=== PATIENT | female | born 1990 | race Caucasian/White ===

== ENCOUNTER → 2016-06-13 | Outpatient (CLI) | payer BC ==
--- NOTE | 2016-06-13 16:22 | CT ---
EXAMINATION TYPE: CT mastoid wo con DATE OF EXAM: 06/13/2016 4:16 PM COMPARISON: NONE HISTORY: Bilateral ear and neck pain for [address] DLP: 150 mGycm Automated exposure control for dose reduction was used. FINDINGS: Small amount of fluid is within the inferior posterior right mastoid air cells. Mastoid air cells oth erwise appear clear. Internal auditory canals appear normal. Semicircular canals appear normal. Cerebellar pontine angles are unremarkable. Middle ears appear clear. Paranasal sinuses are unremarkable note is made of right septal deviation. The sella is normal. Cochlea are normal IMPRESSION: SMALL AMOUNT OF FLUID WITHIN THE INFERIOR POSTERIOR RIGHT MASTOID AIR CELLS WITHOUT SEPTAL DESTRUCTIO N. MILD RIGHT MASTOIDITIS MAY BE PRESENT.
== END | disposition home or self-care (01) ==
LOC: RADCTMAIN 15:57
PROVIDERS: ATTEND Nurse Practitioner Family
DX: H70.003 Acute mastoiditis without complications, bilateral (principal)
CPT/HCPCS: 70486

== ENCOUNTER → 2017-02-12 | Outpatient (CLI) | payer BC, OTHER ==
--- NOTE | 2017-02-12 15:02 | US ---
EXAMINATION TYPE: US transvaginal DATE OF EXAM: 02/12/2017 COMPARISON: NONE CLINICAL HISTORY: 26-year-old female left lower quadrant pain R10.32, Low grade fever. Left pelvic pa in x 5 weeks, 1, para 1 TECHNIQUE: Transvaginal (TV) only per ordering physician FINDINGS: Date of LMP: 02/09/17 Uterus: Anteverted measuring 6.8 x 3.6 x 3.8 cm Endometrial Stripe: 0.4 cm, within normal limits. Right Ovary: 2.7 x 1.8 x 1.8 cm Left Ovary: 1.8 x 1.2 x 1.6 cm Small follicles on both sides. No evident adnexal abnormality or cul-de-sac free fluid. IMPRESSION: Unremarkable transvaginal sonographic examination of the pelvis.
== END | disposition home or self-care (01) ==
LOC: RADUSWWP 13:59
PROVIDERS: ATTEND Family Medicine
DX: R10.32 Left lower quadrant pain (principal); N92.6 Irregular menstruation, unspecified; R50.9 Fever, unspecified
CPT/HCPCS: 76830

== ENCOUNTER 2017-10-26 13:44 | Outpatient (CLI) | payer OTHER ==
[2017-10-26] MEDS ORDERED: LACTATED RINGERS 1,000 ML IV SCH (14:15)
[2017-10-26 14:37] LABS: Amorphous Sediment,Urine Few /hpf; Appearance,Urine Turbid (Clear); Bilirubin,Urine Negative (Negative); Blood,Urine Negative (Negative); Color,Urine Yellow; Glucose,Urine (UA) Negative (Negative); Ketones,Urine Negative (Negative); Leukocyte Esterase,Urine Large (Negative); Mucus,Urine Rare /hpf; Nitrite,Urine Negative (Negative); Protein,Urine Trace (Negative); Specific Gravity,Urine 1.014 (1.001-1.035); Squamous Epithelial Cell,Urine 32 /hpf (0-4); Urobilinogen,Urine <2.0 mg/dL (<2.0); WBC,Urine 38 /hpf (0-5)
[2017-10-26 17:41] VITALS: BP 120/71; PULSE 98; RESP 16; TEMP 98.2
--- NOTE | 2017-10-31 19:39 | P.MSEPDOC ---
Presenting Problems - Arrival Data Date of Arrival on Unit: 10/26/17 Time of Arrival on Unit: 13:44 Mode of Transport: Ambulatory - Complaint OB-Reason for Admission/Chief Complaint: Possible Onset of Labor Medical History - Information : 3 Para: 0 Term: 0 : 0 Abortions: Spontaneous or Elective: 3 Number of Living Children: 0 - Gestational Age Gestational Age by RAQUEL (wks/days): 37 Weeks and 5 Days Review of Systems - Review of Systems Constitutional: No problems Breast: No problems ENT: No problems Cardiovascular: No problems Respiratory: No problems Gastrointestinal: No problems Genitourinary: No problems Musculoskeletal: No problems Neurological: No problems Skin: No problems Vital Signs - Temperature Temperature: 98.2 F Temperature Source: Oral - Pulse Right Pulse Rate: 98 Pulse Assessment Method: Automatic Cuff - Respirations Respiratory Rate: 16 Oxygen Delivery Method: Room Air - Blood Pressure Right Arm Blood Pressure: 120/71 Blood Pressure Mean: 87 Blood Pressure Source: Automatic Cuff Medical Screen Scoring (Pre) - Cervical Exam Dilation: 0 cm = 0 Membranes: Intact - Uterine Contractions Frequency: N/A - Maternal Vital Signs Maternal Temperature: N/A Signs of Preeclampsia: N/A Maternal Respirations: N/A - Pain Assessment Pain Location and Character: Left, Anterior, Abdomen Pain Scale Used: Numeric (1 - 10) Pain Intensity: 5 Pain Management Goal: 5 Pain Description: Cramping Pain Radiation Location: up back - Maternal Trauma Maternal Trauma: N/A - Assessment Baseline FHR: 150 Heart Rate - NICHD Category: Category I (Normal) = 0 - Total Score Total Score (Pre): 0 - Level of Risk Level of Risk: N/A Physician Notification (Pre) - Physician Notified Physician Notified Date: 10/26/17 Physician Notified Time: 14:00 Physician/Practitioner Notifed:: Dr Cross New Order Received: Yes - Notification Comment Comment: U/A, Iv 1000 cc LR. ffn, vag exam Disposition - Disposition OB Disposition: Discharge to home Discharge Date: 10/26/17 Discharge Time: 16:10 I agree with the RN Medical Screening Exam: Yes Risk & Benefit of care provided described in d/c instruction: Yes Diagnosis: FALSE LABOR AT OR AFTER 37 COMPLETED WEEKS OF GESTATION
== END 2017-10-26 16:10 | disposition home or self-care (01) ==
LOC: FBPOP 13:44
PROVIDERS: ATTEND Obstetrics & Gynecology Obstetrics
DX: O47.1 False labor at or after 37 completed weeks of gestation (principal); Z3A.37 37 weeks gestation of pregnancy
CPT/HCPCS: 81001; 82731; 96360; 99213

== ENCOUNTER 2018-01-05 12:19 | Outpatient (CLI) | payer OTHER ==
[2018-01-05 14:08] VITALS: BP 139/79; PULSE 111; RESP 18; TEMP 97.3
--- NOTE | 2018-02-01 01:48 | P.MSEPDOC ---
Presenting Problems - Arrival Data Date of Arrival on Unit: 01/05/18 Time of Arrival on Unit: 12:19 Mode of Transport: Ambulatory - Complaint Comment: decreased movement and pain and elevated blood sugars Medical History - Information : 2 Para: 1 Term: 0 : 1 Abortions: Spontaneous or Elective: 0 Number of Living Children: 1 - Gestational Age Gestational Age by RAQUEL (wks/days): 37 Weeks and 1 Days - History Complications: GDM Review of Systems - Review of Systems Constitutional: No problems Breast: No problems ENT: No problems Cardiovascular: No problems Respiratory: No problems Gastrointestinal: No problems Genitourinary: No problems Musculoskeletal: No problems Neurological: No problems Skin: No problems Vital Signs - Temperature Temperature: 97.3 F Temperature Source: Oral - Pulse Right Brachial Pulse Rate: 111 Pulse Assessment Method: Automatic Cuff - Respirations Respiratory Rate: 18 Oxygen Delivery Method: Room Air O2 Sat by Pulse Oximetry: 98 - Blood Pressure Right Arm Blood Pressure: 139/79 Blood Pressure Mean: 99 Blood Pressure Source: Automatic Cuff Medical Screen Scoring (Pre) - Cervical Exam Dilation: 1-3 cm = 1 Membranes: Intact - Uterine Contractions Frequency: > 5 minutes apart = 1 Duration: > 40 seconds = 2 Intensity: N/A - Maternal Vital Signs Maternal Temperature: N/A Signs of Preeclampsia: N/A Maternal Respirations: N/A - Pain Assessment Pain Location and Character: Right, Abdomen Pain Scale Used: Numeric (1 - 10) Pain Intensity: 5 Pain Description: *Acute Pain Frequency: Intermittent Pain Behavior: Vocalization - Maternal Trauma Maternal Trauma: N/A - Assessment Baseline FHR: 160 Heart Rate - NICHD Category: Category I (Normal) = 0 NST: Reactive Position: N/A Station: N/A - Total Score Total Score (Pre): 4 - Level of Risk Level of Risk: Low (0-5) Physician Notification (Pre) - Physician Notified Physician Notified Date: 01/05/18 Physician Notified Time: 12:55 Physician/Practitioner Notifed:: Dr. Godwin Spoke With: Dr. Godwin New Order Received: Yes - Notification Comment Comment: recheck cervix in one hour, if no change, discharge pt home Disposition - Disposition OB Disposition: Triage, Discharge to home, Written follow up instructions reviewed Discharge Date: 01/05/18 Discharge Time: 13:55 I agree with the RN Medical Screening Exam: Yes Risk & Benefit of care provided described in d/c instruction: Yes Diagnosis: DECREASED MOVEMENTS, UNSP TRIMESTER, UNSP
== END 2018-01-05 13:55 | disposition home or self-care (01) ==
LOC: FBPOP 12:19
PROVIDERS: ATTEND Obstetrics & Gynecology
DX: O36.8190 Decreased fetal movements, unspecified trimester, not applicable or unspecified (principal); Z3A.37 37 weeks gestation of pregnancy
CPT/HCPCS: 59025; 99213

== ENCOUNTER 2018-01-10 05:57 | Inpatient (IN) | payer OTHER ==
[2018-01-10] MEDS ORDERED: LIDOCAINE 0.5% (PF) 5 MG/ML (50 ML SDV) SQ PRN (06:11)
[2018-01-10] MEDS ORDERED: CARBOPROST TROMETHAMINE 250 MCG/ML 1 ML AMP IM PRN (06:11)
[2018-01-10] MEDS ORDERED: TERBUTALINE 1 MG/ML VIAL SQ PRN (06:11)
[2018-01-10] MEDS ORDERED: OXYTOCIN 10 UNIT/ML 1 ML VIAL IM PRN (06:11)
[2018-01-10] MEDS ORDERED: METHYLERGONOVINE 0.2 MG/ML 1 ML AMP IM PRN (06:11)
[2018-01-10] MEDS ORDERED: LACTATED RINGERS 1,000 ML IV SCH (06:15)
[2018-01-10] MEDS ORDERED: OXYTOCIN 20 UNITS/1000 ML NS 1,000 ML IV SCH ×2 (06:15→12:30)
[2018-01-10 06:28] LABS: Anisocytosis Slight; Basophils % (A) 0 %; Eosinophils # (A) 0.1 k/uL (0-0.7); Eosinophils % (A) 1 %; HCT 29.9 % (34.0-46.0); HGB 10.3 gm/dL (11.4-16.0); Lymphocytes # (A) 2.1 k/uL (1.0-4.8); Lymphocytes % (A) 24 %; MCH 26.8 pg (25.0-35.0); MCHC 34.4 g/dL (31.0-37.0); MCV 77.9 fL (80.0-100.0); Mean Platelet Volume 8.2; Microcytosis Slight; Monocytes # (A) 0.5 k/uL (0-1.0); Monocytes % (A) 6 %; Neutrophils # (A) 5.7 k/uL (1.3-7.7); Neutrophils % (A) 67 %; Platelet Count 219 k/uL (150-450); Poikilocytosis Moderate; RBC 3.84 m/uL (3.80-5.40); RDW 17.3 % (11.5-15.5); WBC 8.5 k/uL (3.8-10.6)
[2018-01-10 06:40] VITALS: BMI 35.1
[2018-01-10 07:49] LABS: Glucose,Whole Blood 89 mg/dL (75-99)
--- NOTE | 2018-01-10 08:33 | P.HPOB ---
History of Present Illness H&P Date: 01/10/18 Chief Complaint: IUP at 37-6/7 weeks, poorly controlled gestational diabetes, advanced cervi This is a 27-year-old 2 para 0101 at 37-6/7 weeks. Patient is known gestational diabetic. She is progressed through over the last few weeks she has had poorly controlled sugars. Patient states most of her fastings have been greater than 100 and her postprandials have been in the 180s. Patient isn't feeling well and when she takes her blood sugars she notes that they are significantly elevated. She notes good movement at this time. She denies vaginal bleeding and she is noting consistent painful contractions. Patient was seen in the office yesterday on 01/09 with noted advanced dilation of 4-5 cm. On bloodwork patient has a blood type of A+, rubella immune, hepatitis B surface antigen negative, HIV negative, RPR nonreactive, GBS negative. She is gestational diabetic as stated above and has been poorly controlled and noncompliant throughout the patient has been unable to check her blood sugars had a routine basis, due to insurance issues and getting test strips. Patient has been receiving routine care since 9 weeks of gestation with myself. Patient has her due date based on a first trimester ultrasound in addition. Review of Systems Constitutional: Reports fatigue, Denies chills, Denies fever Ears, nose, mouth and throat: Denies headache Cardiovascular: Reports edema Respiratory: Denies cough, Denies dyspnea Gastrointestinal: Reports nausea, Denies constipation, Denies diarrhea, Denies vomiting Genitourinary: Reports Past Medical History Past Medical History: No Reported History Additional Past Medical History / Comment(s): gestational diabetes History of Any Multi-Drug Resistant Organisms: None Reported Additional Past Surgical History / Comment(s): left eye, cyst removed from wrist. Her tubes as a child Additional Past Anesthesia/Blood Transfusion Reaction / Comment(s): NEVER HAD BLOOD TRANSFUSION Past Psychological History: No Psychological Hx Reported Smoking Status: Never smoker Past Alcohol Use History: None Reported Past Drug Use History: None Reported - Past Family History Mother Family Medical History: No Reported History Medications and Allergies Home Medications Medication Instructions Recorded Confirmed Type Ondansetron HCl [Zofran] 4 mg PO ONCE PRN 01/05/18 01/10/18 History Pedi Multivit No.25/Folic Acid 2 tab PO DAILY 01/05/18 01/10/18 History [Flintstones Multivit Chew Tab] Allergies Allergy/AdvReac Type Severity Reaction Status Date / Time No Known Allergies Allergy Verified 01/10/18 06:10 Exam Osteopathic Statement: *. No significant issues noted on an osteopathic structural exam other than those noted in the History and Physical/Consult. Vital Signs Temp Pulse Resp BP Pulse Ox 01/10/18 06:09 97.4 F L 97 16 126/79 98 Intake and Output 01/09/18 01/10/18 01/10/18 22:59 06:59 14:59 Other: Weight 78.925 kg - OBG Physical Exam Abdomen: Gravid and measuring large for gestational age ultrasound done yesterday with fetus measuring 7 lbs. 15 oz. or 83rd percentile, MARLA was slightly elevated at 22 Cervix: 4-5/60/-2 bulging bag of water is noted amniotomy is performed and clear fluid is obtained large amount Uterus: enlarged Results Result Diagrams: 01/10/18 06:15 Abnormal Lab Results - Last 24 Hours (Table) 01/10/18 Range/Units 06:15 Hgb 10.3 L (11.4-16.0) gm/dL Hct 29.9 L (34.0-46.0) % MCV 77.9 L (80.0-100.0) fL RDW 17.3 H (11.5-15.5) % Assessment and Plan (1) Term Current Visit: Yes Status: Acute Code(s): Z34.80 - ENCOUNTER FOR SUPRVSN OF NORMAL , UNSP TRIMESTER SNOMED Code(s): 11119157 (2) GDM (gestational diabetes mellitus), class A1 Current Visit: Yes Status: Acute Code(s): O24.410 - GESTATIONAL DIABETES MELLITUS IN , DIET CONTROLLED SNOMED Code(s): 16491407 (3) Prolonged latent phase of labor Current Visit: Yes Status: Acute Code(s): O62.0 - PRIMARY INADEQUATE CONTRACTIONS SNOMED Code(s): 921994559 (4) Noncompliance with diabetes treatment Current Visit: Yes Status: Acute Code(s): Z91.19 - PATIENT'S NONCOMPLIANCE W OTH MEDICAL TREATMENT AND REGIMEN SNOMED Code(s): 8852254 Plan: After long discussion with the patient in the office regarding gestational age noncompliance with gestational diabetes testing, diet the decision was made for induction of labor. The possibility of the infant going to special care nursery is discussed with the patient she states understanding all questions are answered and she agrees with the plan. Patient was also noted to be significantly diet dilated at 4-5 cm with a bulging bag of water. With the contractions patient was noting induction was necessary in addition. Pitocin induction is begun. Amniotomy was performed with copious amount of clear fluid being noted.
[2018-01-10] MEDS ORDERED: BUTORPHANOL 1 MG/ML 1 ML VIAL IV PRN (10:13)
[2018-01-10] MEDS ORDERED: diphenhydrAMINE 50 MG/ML 1 ML VIAL IVP PRN ×2 (12:26)
[2018-01-10] MEDS ORDERED: WITCH HAZEL 1 EACH MED..PAD TOPICAL PRN (12:26)
[2018-01-10] MEDS ORDERED: BENZOCAINE/MENTHOL SPRAY 1 GM/SPRAY AEROSOL TOPICAL PRN (12:26)
[2018-01-10] MEDS ORDERED: diphenhydrAMINE 50 MG CAP PO PRN (12:26)
[2018-01-10] MEDS ORDERED: SIMETHICONE 80 MG CHEWABLE PO PRN (12:26)
[2018-01-10] MEDS ORDERED: HYDROCORTISONE 2.5% RECTAL CREAM 30 GM TUBE RECTAL PRN (12:26)
[2018-01-10] MEDS ORDERED: diphenhydrAMINE 25 MG CAP PO PRN (12:26)
[2018-01-10] MEDS ORDERED: ZOLPIDEM 5 MG TAB PO PRN (12:26)
[2018-01-10] MEDS ORDERED: LANOLIN CREAM 5 GM TUBE TOPICAL PRN (12:26)
--- NOTE | 2018-01-10 13:43 | P.PROBDLV ---
Vaginal Delivery Note - . Vaginal Delivery Note: This is a 27-year-old 2 para 0101 at 37-6/7 weeks that presents for induction of labor secondary to noncompliance with gestational diabetes, advanced cervical dilation. Patient presented to labor and delivery for to 5 cm Pitocin induction of labor was begun. Eventually amniotomy was performed and clear fluid was obtained, a copious amount. Patient declined epidural, but did receive 1 dose of Stadol throughout labor. Patient progressed to complete. She began pushing and had a normal spontaneous vaginal delivery with a viable female infant born at 1822, 8 lbs. 0 oz. with Apgars of 9 and 9 at one and 5 minutes respectively. After a two-minute delay the cord was doubly clamped and cut. The placenta was then delivered spontaneously intact with a three-vessel cord being noted. On inspection the patient's vaginal vault a first-degree vaginal laceration was noted this was repaired in the usual fashion after 1% lidocaine was injected. The uterus was noted to be firm and below the umbilicus and bleeding was moderate at this time. Estimated blood loss was approximately 200 mL. Patient and infant tolerated delivery well and are resting comfortably.
[2018-01-10] MEDS ORDERED: IBUPROFEN IV 800 MG in SODIUM CHLORIDE 0.9% 250 ML IV ONE (14:15)
[2018-01-10] MEDS: ACETAMINOPHEN TAB 325 MG TAB PO PRN ×2 (17:48→23:17)
[2018-01-10] MEDS: IBUPROFEN 600 MG TAB PO PRN (19:40)
[2018-01-10] MEDS: SENNOSIDES-DOCUSATE SODIUM 1 EACH TAB PO SCH (20:41)
[2018-01-11] MEDS: IBUPROFEN 600 MG TAB PO PRN ×3 (01:39→13:40)
[2018-01-11 05:48] LABS: Glucose,Whole Blood 64 mg/dL (75-99)
[2018-01-11] MEDS: SENNOSIDES-DOCUSATE SODIUM 1 EACH TAB PO SCH (07:28)
--- NOTE | 2018-01-11 08:20 | P.DS ---
Providers Date of admission: 01/10/18 05:57 Expected date of discharge: 01/11/18 Attending physician: Nilda Cross Primary care physician: Stated None - Discharge Diagnosis(es) (1) Term Current Visit: Yes Status: Acute (2) GDM (gestational diabetes mellitus), class A1 Current Visit: Yes Status: Acute (3) Prolonged latent phase of labor Current Visit: Yes Status: Acute (4) Noncompliance with diabetes treatment Current Visit: Yes Status: Acute (5) Status post normal vaginal delivery Current Visit: Yes Status: Acute Hospital Course: This is a 27-year-old 2 now para 2 that presented yesterday at 37-6/7 weeks for induction of labor secondary to gestational diabetes, noncompliance, advanced cervical dilation. Pitocin induction of labor was begun amniotomy was performed and clear fluid was obtained. Patient progressed throughout labor and had a normal spontaneous vaginal delivery of a viable female at 1322 , weight of 8 lbs. 0 oz. with Apgars of 9 and 9 at one and 5 minutes respectively. Patient did sustain a first-degree vaginal laceration which was repaired in the usual fashion with 3-0 Rapide. Patient denied concerns this morning. She is ambulating and voiding without difficulty. She is tolerating regular diet without nausea or vomiting. She does wish discharge home at 24 hours. Patient Condition at Discharge: Good Plan - Discharge Summary New Discharge Prescriptions: No Action Pedi Multivit No.25/Folic Acid [Flintstones Multivit Chew Tab] 2 tab PO DAILY Ondansetron HCl [Zofran] 4 mg PO ONCE PRN PRN Reason: Nausea Discharge Medication List Ondansetron HCl [Zofran] 4 mg PO ONCE PRN 01/05/18 [History] Pedi Multivit No.25/Folic Acid [Flintstones Multivit Chew Tab] 2 tab PO DAILY [History] Follow up Appointment(s)/Referral(s): Nilda Cross DO [Doctor of Osteopathic Medicine] - 1 Week Patient Instructions/Handouts: Vaginal Delivery (DC), Vaginal Delivery (GEN) Discharge Disposition: HOME SELF-CARE
[2018-01-11] MEDS: ACETAMINOPHEN TAB 325 MG TAB PO PRN (11:50)
[2018-01-11] MEDS ORDERED: PRENATAL VIT-IRON-FOLIC ACID 1 EACH CAP PO SCH (12:00)
[2018-01-11 12:10] VITALS: BP 132/74; PULSE 94; RESP 18; TEMP 98.3
== END 2018-01-11 13:55 | disposition home or self-care (01) | DRG 807 ==
LOC: 4FBP 05:57
PROVIDERS: ADMIT Obstetrics & Gynecology Obstetrics; ATTEND Obstetrics & Gynecology Obstetrics
PROC: 10907ZC Drainage of Amniotic Fluid, Therapeutic from Products of Conception, Via Natural or Artificial Opening (ICD-10-PCS; principal; 2018-01-10)
PROC: 10E0XZZ Delivery of Products of Conception, External Approach (ICD-10-PCS; principal; 2018-01-10)
PROC: 3E033VJ Introduction of Other Hormone into Peripheral Vein, Percutaneous Approach (ICD-10-PCS; principal; 2018-01-10)
PROC: 0HQ9XZZ Repair Perineum Skin, External Approach (ICD-10-PCS; principal; 2018-01-10)
DX: O24.420 Gestational diabetes mellitus in childbirth, diet controlled (principal); Z37.0 Single live birth; O63.0 Prolonged first stage (of labor); O70.0 First degree perineal laceration during delivery; Z3A.37 37 weeks gestation of pregnancy; Z91.19 Patient's noncompliance with other medical treatment and regimen; Z79.899 Other long term (current) drug therapy
CPT/HCPCS: 85025; 86850; 86900; 86901

== ENCOUNTER 2020-12-15 00:16 | Emergency (ER) | payer BC ==
[2020-12-15 03:00] LABS: Basophils % (A) 0 %; Eosinophils # (A) 0.1 k/uL (0-0.7); Eosinophils % (A) 1 %; HCT 36.2 % (34.0-46.0); HGB 12.9 gm/dL (11.4-16.0); Lymphocytes # (A) 2.8 k/uL (1.0-4.8); Lymphocytes % (A) 36 %; MCH 29.7 pg (25.0-35.0); MCHC 35.8 g/dL (31.0-37.0); MCV 83.1 fL (80.0-100.0); Mean Platelet Volume 7.9; Monocytes # (A) 0.3 k/uL (0-1.0); Monocytes % (A) 4 %; Neutrophils # (A) 4.4 k/uL (1.3-7.7); Neutrophils % (A) 57 %; Platelet Count 336 k/uL (150-450); RBC 4.35 m/uL (3.80-5.40); RDW 12.5 % (11.5-15.5); WBC 7.7 k/uL (3.8-10.6)
[2020-12-15 03:01] LABS: Amorphous Sediment,Urine Occasional /hpf; Appearance,Urine Cloudy (Clear); Bacteria,Urine Rare /hpf; Bilirubin,Urine Negative (Negative); Blood,Urine Small (Negative); Color,Urine Yellow; Glucose,Urine (UA) Negative (Negative); Hyaline Casts,Urine 1 /lpf (0-2); Ketones,Urine Negative (Negative); Leukocyte Esterase,Urine Small (Negative); Mucus,Urine Few /hpf; Nitrite,Urine Negative (Negative); Protein,Urine Negative (Negative); RBC,Urine 5 /hpf (0-5); Specific Gravity,Urine 1.028 (1.001-1.035); Squamous Epithelial Cell,Urine 8 /hpf (0-4); Urobilinogen,Urine <2.0 mg/dL (<2.0); WBC,Urine 6 /hpf (0-5)
[2020-12-15 03:02] LABS: ALT 10 U/L (4-34); AST 16 U/L (14-36); African American GFR (CKD) >90 (>60 ml/min/1.73 sqM); Albumin 4.2 g/dL (3.5-5.0); Alkaline Phosphatase 57 U/L (38-126); Anion Gap 10 mmol/L; Blood Urea Nitrogen 11 mg/dL (7-17); Calcium 10.1 mg/dL (8.4-10.2); Carbon Dioxide 23 mmol/L (22-30); Chloride 106 mmol/L (98-107); Glucose 118 mg/dL (74-99); HCG,Quantitative Serum <2.4 mIU/mL; Lipase 139 U/L (23-300); Non-African American GFR(CKD) >90 (>60 ml/min/1.73 sqM); Potassium 4.1 mmol/L (3.5-5.1); Sodium 139 mmol/L (137-145); Total Bilirubin 0.3 mg/dL (0.2-1.3)
--- NOTE | 2020-12-15 03:13 | CT ---
EXAMINATION TYPE: CT abdomen pelvis wo con DATE OF EXAM: 12/15/2020 COMPARISON: None HISTORY: RUQ PAIN CT DLP: 497.2 mGycm Automated exposure control for dose reduction was used. Images obtained from the diaphragm to the floor the pelvis with no contrast. There is minimal subsegmental atelectasis at the lung bases. Heart size is normal. There is no perica rdial effusion. Liver spleen stomach pancreas appear intact. The bile ducts are not dilated. Gallblad gisselle is large and measures 4 cm in diameter. There is no adrenal mass. Kidneys have normal size. There is no hydronephrosis. Ureters are not dilat ed. There is no retroperitoneal adenopathy. Bladder distends smoothly. Uterus is anteverted. There is no inguinal hernia. There is no evidence of a pelvic mass. There is no free fluid in the pelvis. The appendix appears normal. There is no mesenteric edema. There is no ascites or free air. There is no bowel obstruction. Lumbar vertebra have normal alignment. Posterior elements are intact. There is no compression fracture. Bony pelvis is intact. IMPRESSION: No renal stone or obstruction. Normal appendix. Gallbladder is relatively large and gallbladder dysfunction or cholecystitis is possible.
--- NOTE | 2020-12-15 03:27 | ED ---
General Adult HPI - General Stated complaint: Abdominal Pain - Related Data Home Medications Medication Instructions Recorded Confirmed Ondansetron HCl [Zofran] 4 mg PO ONCE PRN 01/05/18 01/10/18 Pedi Multivit No.25/Folic Acid 2 tab PO DAILY 01/05/18 01/10/18 [Flintstones Multivit Chew Tab] Previous Rx's Medication Instructions Recorded Ondansetron [Zofran ODT] 4 mg PO Q8HR PRN #20 tab 12/15/20 Allergies Allergy/AdvReac Type Severity Reaction Status Date / Time No Known Allergies Allergy Verified 01/10/18 06:10 Review of Systems ROS Statement: Those systems with pertinent positive or pertinent negative responses have been documented in the HPI. ROS Other: All systems not noted in ROS Statement are negative. Past Medical History Past Medical History: No Reported History Additional Past Medical History / Comment(s): gestational diabetes History of Any Multi-Drug Resistant Organisms: None Reported Additional Past Surgical History / Comment(s): left eye, cyst removed from wrist. Her tubes as a child Additional Past Anesthesia/Blood Transfusion Reaction / Comment(s): NEVER HAD BLOOD TRANSFUSION Past Psychological History: No Psychological Hx Reported Past Alcohol Use History: None Reported Past Drug Use History: None Reported - Past Family History Mother Family Medical History: No Reported History Medical Decision Making - Lab Data Result diagrams: 12/15/20 00:43 12/15/20 00:43 Lab Results 12/15/20 12/15/20 12/15/20 Range/Units 00:43 00:43 00:43 WBC 7.7 (3.8-10.6) k/uL RBC 4.35 (3.80-5.40) m/uL Hgb 12.9 (11.4-16.0) gm/dL Hct 36.2 (34.0-46.0) % MCV 83.1 (80.0-100.0) fL MCH 29.7 (25.0-35.0) pg MCHC 35.8 (31.0-37.0) g/dL RDW 12.5 (11.5-15.5) % Plt Count 336 (150-450) k/uL MPV 7.9 Neutrophils % 57 % Lymphocytes % 36 % Monocytes % 4 % Eosinophils % 1 % Basophils % 0 % Neutrophils # 4.4 (1.3-7.7) k/uL Lymphocytes # 2.8 (1.0-4.8) k/uL Monocytes # 0.3 (0-1.0) k/uL Eosinophils # 0.1 (0-0.7) k/uL Basophils # 0.0 (0-0.2) k/uL Sodium 139 (137-145) mmol/L Potassium 4.1 (3.5-5.1) mmol/L Chloride 106 (98-107) mmol/L Carbon Dioxide 23 (22-30) mmol/L Anion Gap 10 mmol/L BUN 11 (7-17) mg/dL Creatinine 0.71 (0.52-1.04) mg/dL Est GFR (CKD-EPI)AfAm >90 (>60 ml/min/1.73 sqM) Est GFR (CKD-EPI)NonAf >90 (>60 ml/min/1.73 sqM) Glucose 118 H (74-99) mg/dL Plasma Lactic Acid Vel 1.2 (0.7-2.0) mmol/L Calcium 10.1 (8.4-10.2) mg/dL Total Bilirubin 0.3 (0.2-1.3) mg/dL AST 16 (14-36) U/L ALT 10 (4-34) U/L Alkaline Phosphatase 57 (38-126) U/L Total Protein 7.0 (6.3-8.2) g/dL Albumin 4.2 (3.5-5.0) g/dL Lipase 139 (23-300) U/L HCG, Quant <2.4 mIU/mL Urine Color Urine Appearance (Clear) Urine pH (5.0-8.0) Ur Specific [place] (1.001-1.035) Urine Protein (Negative) Urine Glucose (UA) (Negative) Urine Ketones (Negative) Urine Blood (Negative) Urine Nitrite (Negative) Urine Bilirubin (Negative) Urine Urobilinogen (<2.0) mg/dL Ur Leukocyte Esterase (Negative) Urine RBC (0-5) /hpf Urine WBC (0-5) /hpf Ur Squamous Epith Cells (0-4) /hpf Amorphous Sediment (None) /hpf Urine Bacteria (None) /hpf Hyaline Casts (0-2) /lpf Urine Mucus (None) /hpf 12/15/20 Range/Units 00:43 WBC (3.8-10.6) k/uL RBC (3.80-5.40) m/uL Hgb (11.4-16.0) gm/dL Hct (34.0-46.0) % MCV (80.0-100.0) fL MCH (25.0-35.0) pg MCHC (31.0-37.0) g/dL RDW (11.5-15.5) % Plt Count (150-450) k/uL MPV Neutrophils % % Lymphocytes % % Monocytes % % Eosinophils % % Basophils % % Neutrophils # (1.3-7.7) k/uL Lymphocytes # (1.0-4.8) k/uL Monocytes # (0-1.0) k/uL Eosinophils # (0-0.7) k/uL Basophils # (0-0.2) k/uL Sodium (137-145) mmol/L Potassium (3.5-5.1) mmol/L Chloride (98-107) mmol/L Carbon Dioxide (22-30) mmol/L Anion Gap mmol/L BUN (7-17) mg/dL Creatinine (0.52-1.04) mg/dL Est GFR (CKD-EPI)AfAm (>60 ml/min/1.73 sqM) Est GFR (CKD-EPI)NonAf (>60 ml/min/1.73 sqM) Glucose (74-99) mg/dL Plasma Lactic Acid Vel (0.7-2.0) mmol/L Calcium (8.4-10.2) mg/dL Total Bilirubin (0.2-1.3) mg/dL AST (14-36) U/L ALT (4-34) U/L Alkaline Phosphatase (38-126) U/L Total Protein (6.3-8.2) g/dL Albumin (3.5-5.0) g/dL Lipase (23-300) U/L HCG, Quant mIU/mL Urine Color Yellow Urine Appearance Cloudy H (Clear) Urine pH 6.0 (5.0-8.0) Ur Specific [place] 1.028 (1.001-1.035) Urine Protein Negative (Negative) Urine Glucose (UA) Negative (Negative) Urine Ketones Negative (Negative) Urine Blood Small H (Negative) Urine Nitrite Negative (Negative) Urine Bilirubin Negative (Negative) Urine Urobilinogen <2.0 (<2.0) mg/dL Ur Leukocyte Esterase Small H (Negative) Urine RBC 5 (0-5) /hpf Urine WBC 6 H (0-5) /hpf Ur Squamous Epith Cells 8 H (0-4) /hpf Amorphous Sediment Occasional H (None) /hpf Urine Bacteria Rare H (None) /hpf Hyaline Casts 1 (0-2) /lpf Urine Mucus Few H (None) /hpf Disposition Clinical Impression: Gallstones, Abdominal pain Disposition: HOME SELF-CARE Condition: Good Instructions (If sedation given, give patient instructions): Gallstones (ED), Low Fat Diet (ED), Abdominal Pain (ED) Additional Instructions: Follow low fat diet. Increase fluids. Take medications as directed. Follow up with your primary care physician for recheck in 1-2 days. Return for any new, worsening, or concerning symptoms. Prescriptions: Ondansetron [Zofran ODT] 4 mg PO Q8HR PRN #20 tab PRN Reason: Nausea Is patient prescribed a controlled substance at d/c from ED?: No Referrals: Chucho Kinney Jr, DO [Primary Care Provider] - 1-2 days Tyrell Alcaraz MD [STAFF PHYSICIAN] - 1-2 days Time of Disposition: 03:27
--- NOTE | 2020-12-15 08:58 | US ---
EXAMINATION TYPE: US gallbladder DATE OF EXAM: 12/15/2020 COMPARISON: NONE CLINICAL HISTORY: PAIN. EXAM MEASUREMENTS: Liver Length: 15.9 cm Gallbladder Wall: 0.2 cm CBD: 0.4 cm Right Kidney: 9.3 x 4.2 x 4.5 cm 1. Pancreas: Obscured by bowel gas 2. Liver: wnl 3. Gallbladder: Stones visualized Evidence for sonographic Olson's sign? Yes 4. CBD: wnl 5. Right Kidney: No hydronephrosis Suboptimal evaluation of the entire pancreas on initial images saved. Visualized liver appears within normal limits. No intrahepatic or extra hepatic biliary dilatation. Gallbladder shows small mobile s hadowing stones. No pericholecystic fluid or abnormal gallbladder wall thickening. Positive sonograph ic Olson's sign. No right-sided hydronephrosis. IMPRESSION: Gallstones without definitive secondary ultrasound evidence for acute cholecystitis howev er in patient with pain and positive sonographic Olson's sign it cannot be entirely excluded. Consid er HIDA scan follow-up
[2020-12-15] MEDS ORDERED: ONDANSETRON 4 MG ODT STARTER PACK 2 TAB BTL ONE (23:59)
[2020-12-15] MEDS ORDERED: SODIUM CHLORIDE 0.9% 1,000 ML BAG ONE (23:59)
[2020-12-15] MEDS ORDERED: KETOROLAC 15 MG/ML 1 ML VIAL ONE (23:59)
[2020-12-15] MEDS ORDERED: ACET/COD 300 MG/30 MG STARTER PACK 6 TAB BTL PO ONE (23:59)
== END 2020-12-15 03:42 | disposition home or self-care (01) ==
LOC: EC 00:16
DX: K80.20 Calculus of gallbladder without cholecystitis without obstruction (principal)
CPT/HCPCS: 36415; 74176; 76705; 80053; 81001; 83605; 83690; 84702; 85025; 99284

== ENCOUNTER 2020-12-29 21:44 | Emergency (ER) | payer BC ==
[2020-12-29 21:57] VITALS: RESP 20; TEMP 98.4
[2020-12-29] MEDS ORDERED: SODIUM CHLORIDE 0.9% 1,000 ML IV STA (22:27)
[2020-12-29] MEDS ORDERED: ONDANSETRON 4 MG/2 ML VIAL IVP STA (22:27)
[2020-12-29] MEDS ORDERED: HYDROmorphone 0.5 MG/0.5 ML SYRINGE IVP STA (22:27)
--- NOTE | 2020-12-29 22:32 | ED ---
General Adult HPI - General Chief complaint: Abdominal Pain Stated complaint: Abd Pain Time Seen by Provider: 12/29/20 22:16 Source: patient, family, RN notes reviewed, old records reviewed Mode of arrival: ambulatory Limitations: no limitations - History of Present Illness Initial comments: 30-year-old female patient presents to the emergency room with right upper abdominal pain. States 10 out of 10. She states that she was seen here on December 15 and since she had gallstones and scheduled to see surgeon next week. She states that today she was drinking alcohol/she had having chips and salsa and the pain started. Around 6:00. She states that she did take some Zofran at 9:30 but they increased pain with radiation to her back in between her shoulder blades. She is cannot get comfortable. She states her abdomen feels swollen. She denies any fevers. No previous abdominal surgeries. -: hour(s) (4) Location: abdomen Radiation: back Severity scale (1-10): 10 Quality: stabbing, other Consistency: constant Improves with: none (cramping) Worsens with: movement Associated Symptoms: nausea/vomiting (no vomiting) Treatments Prior to Arrival: other (zofran) - Related Data Home Medications Medication Instructions Recorded Confirmed Atorvastatin [Lipitor] 20 mg PO DAILY 12/29/20 12/29/20 Etonogestrel/Ethinyl Estradiol 1 vag ring VAGINAL Q28D 12/29/20 12/29/20 [Nuvaring Vaginal Ring] ondansetron HCL [Zofran] 8 mg PO Q8H PRN 12/29/20 12/29/20 Allergies Allergy/AdvReac Type Severity Reaction Status Date / Time No Known Allergies Allergy Verified 12/29/20 23:21 Review of Systems ROS Statement: Those systems with pertinent positive or pertinent negative responses have been documented in the HPI. ROS Other: All systems not noted in ROS Statement are negative. Past Medical History Past Medical History: Hyperlipidemia Additional Past Medical History / Comment(s): gestational diabetes History of Any Multi-Drug Resistant Organisms: None Reported Past Surgical History: No Surgical Hx Reported Additional Past Surgical History / Comment(s): left eye, cyst removed from wrist. Her tubes as a child Additional Past Anesthesia/Blood Transfusion Reaction / Comment(s): NEVER HAD BLOOD TRANSFUSION Past Psychological History: No Psychological Hx Reported Smoking Status: Never smoker Past Alcohol Use History: None Reported Past Drug Use History: None Reported - Past Family History Mother Family Medical History: No Reported History General Exam Limitations: no limitations General appearance: alert, in no apparent distress Head exam: Present: atraumatic, normocephalic, normal inspection Eye exam: Present: normal appearance, PERRL, EOMI. Absent: scleral icterus, conjunctival injection, periorbital swelling ENT exam: Present: normal exam, normal oropharynx, mucous membranes moist Neck exam: Present: normal inspection, full ROM. Absent: tenderness, meningismus, lymphadenopathy Respiratory exam: Absent: respiratory distress, wheezes, chest wall tenderness, accessory muscle use Cardiovascular Exam: Present: regular rate, normal rhythm, normal heart sounds. Absent: systolic murmur, diastolic murmur, rubs, gallop, clicks GI/Abdominal exam: Present: soft, tenderness (diffuse), rebound. Absent: rigid, mass Extremities exam: Present: normal inspection, full ROM, normal capillary refill. Absent: tenderness, pedal edema, joint swelling, calf tenderness Back exam: Present: normal inspection. Absent: tenderness, CVA tenderness (R), CVA tenderness (L) Neurological exam: Present: alert, oriented X3 Psychiatric exam: Present: normal affect, normal mood Skin exam: Present: warm, dry, intact, normal color. Absent: rash, cyanosis, diaphoretic Course Vital Signs 12/29/20 21:54 Temperature 98.4 F Pulse Rate 96 Respiratory 20 Rate Blood Pressure 108/72 O2 Sat by Pulse 99 Oximetry Medical Decision Making - Medical Decision Making patient was seen in the emergency room on December 15 and ultrasound of the gallbladder shows gallstones without definitive secondary cholecystitis. Her gallbladder shows small mobile shadowing stones but no gallbladder wall thickening. She was directed to follow up with surgery which she has an appointment coming up however her pain was exacerbated today with alcohol and salsa and chips. She states that she did take Zofran at 9:30 this evening with minimal relief. She states that her entire abdomen feels swollen. She was offered a CAT scan and refused. Her AST is 117 ALT is 51, white blood cell count is 9.4 and she is afebrile. Her pain was relieved with Dilaudid. She was directed to adhere to a strict gallbladder friendly diet. I did recommend that the patient contact her surgeon tomorrow morning to explain her increased pain and desire to be seen sooner. She states that her current appointment is not until the end of December with Dr Mckinley. I did provide patient with Tylenol threes at discharge however she states that only the Dilaudid seems to be helping with her pain. I did discuss this case with my attending Dr. Rivera - Lab Data Result diagrams: 12/29/20 23:01 12/29/20 23:01 Lab Results 12/29/20 12/29/20 12/29/20 Range/Units 23:01 23:01 23:01 WBC 9.4 (3.8-10.6) k/uL RBC 4.71 (3.80-5.40) m/uL Hgb 13.5 (11.4-16.0) gm/dL Hct 39.2 (34.0-46.0) % MCV 83.3 (80.0-100.0) fL MCH 28.7 (25.0-35.0) pg MCHC 34.5 (31.0-37.0) g/dL RDW 13.0 (11.5-15.5) % Plt Count 349 (150-450) k/uL MPV 7.7 Neutrophils % 72 % Lymphocytes % 22 % Monocytes % 4 % Eosinophils % 0 % Basophils % 0 % Neutrophils # 6.7 (1.3-7.7) k/uL Lymphocytes # 2.1 (1.0-4.8) k/uL Monocytes # 0.4 (0-1.0) k/uL Eosinophils # 0.0 (0-0.7) k/uL Basophils # 0.0 (0-0.2) k/uL Sodium 137 (137-145) mmol/L Potassium 4.0 (3.5-5.1) mmol/L Chloride 105 (98-107) mmol/L Carbon Dioxide 21 L (22-30) mmol/L Anion Gap 11 mmol/L BUN 8 (7-17) mg/dL Creatinine 0.56 (0.52-1.04) mg/dL Est GFR (CKD-EPI)AfAm >90 (>60 ml/min/1.73 sqM) Est GFR (CKD-EPI)NonAf >90 (>60 ml/min/1.73 sqM) Glucose 126 H (74-99) mg/dL Plasma Lactic Acid Vel (0.7-2.0) mmol/L Calcium 9.8 (8.4-10.2) mg/dL Total Bilirubin 0.7 (0.2-1.3) mg/dL AST 117 H (14-36) U/L ALT 51 H (4-34) U/L Alkaline Phosphatase 115 (38-126) U/L Total Protein 7.5 (6.3-8.2) g/dL Albumin 4.5 (3.5-5.0) g/dL Amylase 52 (30-110) U/L Lipase 150 (23-300) U/L Urine Color Yellow Urine Appearance Clear (Clear) Urine pH 7.0 (5.0-8.0) Ur Specific [place] 1.026 (1.001-1.035) Urine Protein Trace H (Negative) Urine Glucose (UA) Negative (Negative) Urine Ketones Negative (Negative) Urine Blood Negative (Negative) Urine Nitrite Negative (Negative) Urine Bilirubin Negative (Negative) Urine Urobilinogen 6.0 (<2.0) mg/dL Ur Leukocyte Esterase Small H (Negative) Urine RBC 3 (0-5) /hpf Urine WBC 2 (0-5) /hpf Ur Squamous Epith Cells 4 (0-4) /hpf Urine Bacteria Rare H (None) /hpf Urine Mucus Few H (None) /hpf Urine HCG, Qual (Not Detectd) 12/29/20 12/29/20 Range/Units 23:01 23:01 WBC (3.8-10.6) k/uL RBC (3.80-5.40) m/uL Hgb (11.4-16.0) gm/dL Hct (34.0-46.0) % MCV (80.0-100.0) fL MCH (25.0-35.0) pg MCHC (31.0-37.0) g/dL RDW (11.5-15.5) % Plt Count (150-450) k/uL MPV Neutrophils % % Lymphocytes % % Monocytes % % Eosinophils % % Basophils % % Neutrophils # (1.3-7.7) k/uL Lymphocytes # (1.0-4.8) k/uL Monocytes # (0-1.0) k/uL Eosinophils # (0-0.7) k/uL Basophils # (0-0.2) k/uL Sodium (137-145) mmol/L Potassium (3.5-5.1) mmol/L Chloride (98-107) mmol/L Carbon Dioxide (22-30) mmol/L Anion Gap mmol/L BUN (7-17) mg/dL Creatinine (0.52-1.04) mg/dL Est GFR (CKD-EPI)AfAm (>60 ml/min/1.73 sqM) Est GFR (CKD-EPI)NonAf (>60 ml/min/1.73 sqM) Glucose (74-99) mg/dL Plasma Lactic Acid Vel 1.4 (0.7-2.0) mmol/L Calcium (8.4-10.2) mg/dL Total Bilirubin (0.2-1.3) mg/dL AST (14-36) U/L ALT (4-34) U/L Alkaline Phosphatase (38-126) U/L Total Protein (6.3-8.2) g/dL Albumin (3.5-5.0) g/dL Amylase (30-110) U/L Lipase (23-300) U/L Urine Color Urine Appearance (Clear) Urine pH (5.0-8.0) Ur Specific [place] (1.001-1.035) Urine Protein (Negative) Urine Glucose (UA) (Negative) Urine Ketones (Negative) Urine Blood (Negative) Urine Nitrite (Negative) Urine Bilirubin (Negative) Urine Urobilinogen (<2.0) mg/dL Ur Leukocyte Esterase (Negative) Urine RBC (0-5) /hpf Urine WBC (0-5) /hpf Ur Squamous Epith Cells (0-4) /hpf Urine Bacteria (None) /hpf Urine Mucus (None) /hpf Urine HCG, Qual Not Detected (Not Detectd) Disposition Clinical Impression: Abdominal pain Disposition: HOME SELF-CARE Condition: Good Instructions (If sedation given, give patient instructions): Abdominal Pain (ED) Additional Instructions: avoid greasy, fried and SPICY foods and alcoholic beverages. keep your appo intment with her surgeon as scheduled. Return to the emergency room with any worsening symptoms including increased pain or fevers. Is patient prescribed a controlled substance at d/c from ED?: No Referrals: Chucho Kinney Jr, [Primary Care Provider] - 1-2 days Time of Disposition: 00:08
[2020-12-29 23:32] LABS: Appearance,Urine Clear (Clear); Bacteria,Urine Rare /hpf; Bilirubin,Urine Negative (Negative); Blood,Urine Negative (Negative); Color,Urine Yellow; Glucose,Urine (UA) Negative (Negative); Ketones,Urine Negative (Negative); Leukocyte Esterase,Urine Small (Negative); Mucus,Urine Few /hpf; Nitrite,Urine Negative (Negative); Protein,Urine Trace (Negative); RBC,Urine 3 /hpf (0-5); Specific Gravity,Urine 1.026 (1.001-1.035); Squamous Epithelial Cell,Urine 4 /hpf (0-4); WBC,Urine 2 /hpf (0-5)
[2020-12-29 23:35] LABS: Basophils % (A) 0 %; Eosinophils % (A) 0 %; HCT 39.2 % (34.0-46.0); HGB 13.5 gm/dL (11.4-16.0); Lymphocytes # (A) 2.1 k/uL (1.0-4.8); Lymphocytes % (A) 22 %; MCH 28.7 pg (25.0-35.0); MCHC 34.5 g/dL (31.0-37.0); MCV 83.3 fL (80.0-100.0); Mean Platelet Volume 7.7; Monocytes # (A) 0.4 k/uL (0-1.0); Monocytes % (A) 4 %; Neutrophils # (A) 6.7 k/uL (1.3-7.7); Neutrophils % (A) 72 %; Platelet Count 349 k/uL (150-450); RBC 4.71 m/uL (3.80-5.40); WBC 9.4 k/uL (3.8-10.6)
[2020-12-29 23:45] LABS: ALT 51 U/L (4-34); AST 117 U/L (14-36); African American GFR (CKD) >90 (>60 ml/min/1.73 sqM); Albumin 4.5 g/dL (3.5-5.0); Alkaline Phosphatase 115 U/L (38-126); Amylase 52 U/L (30-110); Anion Gap 11 mmol/L; Blood Urea Nitrogen 8 mg/dL (7-17); Calcium 9.8 mg/dL (8.4-10.2); Carbon Dioxide 21 mmol/L (22-30); Chloride 105 mmol/L (98-107); Glucose 126 mg/dL (74-99); Lipase 150 U/L (23-300); Non-African American GFR(CKD) >90 (>60 ml/min/1.73 sqM); Sodium 137 mmol/L (137-145); Total Bilirubin 0.7 mg/dL (0.2-1.3); Total Protein 7.5 g/dL (6.3-8.2)
[2020-12-30] MEDS ORDERED: ACET/COD 300 MG/30 MG STARTER PACK 6 TAB BTL PO STA (00:09)
[2020-12-30 00:35] VITALS: BP 106/84; PULSE 94
== END 2020-12-30 00:35 | disposition home or self-care (01) ==
LOC: EC 21:44
DX: R10.11 Right upper quadrant pain (principal); R11.0 Nausea; E78.5 Hyperlipidemia, unspecified; Z79.3 Long term (current) use of hormonal contraceptives; Z79.899 Other long term (current) drug therapy
CPT/HCPCS: 36415; 80053; 82150; 83605; 83690; 85025; 81001; 81025; 99284; 96374; 96375; 96361; J2405; J1170

== ENCOUNTER 2021-01-24 21:49 | Emergency (ER) | payer BC, OTHER ==
[2021-01-24 22:20] VITALS: TEMP 97.8
[2021-01-24] MEDS ORDERED: HYDROmorphone 0.5 MG/0.5 ML SYRINGE IVP STA ×2 (22:28→23:27)
[2021-01-24] MEDS ORDERED: SODIUM CHLORIDE 0.9% 500 ML 500 ML IV STA (22:28)
[2021-01-24] MEDS ORDERED: ONDANSETRON 4 MG/2 ML VIAL IVP STA ×2 (22:28→23:27)
--- NOTE | 2021-01-24 22:30 | ED ---
Abdominal Pain HPI - General Chief Complaint: Abdominal Pain Stated Complaint: Abd Pain Time Seen by Provider: 01/24/21 22:21 Source: patient Mode of arrival: ambulatory - History of Present Illness Initial Comments: Patient is a 30-year-old woman who presents with onset of right upper quadrant pain tonight. She states that this episode is unusual in that she had not eaten prior to the onset of the pain but otherwise it is identical to previous episodes of pain that were diagnosed as "gallbladder." Patient has also had some accompanying nausea. No fever noted. Patient reports that she has been scheduled for cholecystectomy with Dr. Mckinley for the . Complaint: abdominal pain Onset/Timin -: hour(s) Location: RUQ Radiation: back Severity: severe Quality: aching Consistency: constant Improves With: nothing Worsens With: nothing Associated Symptoms: nausea - Related Data Home Medications Medication Instructions Recorded Confirmed Atorvastatin [Lipitor] 20 mg PO DAILY 12/29/20 01/24/21 Etonogestrel/Ethinyl Estradiol 1 vag ring VAGINAL Q28D 12/29/20 01/24/21 [Nuvaring Vaginal Ring] Phentermine HCl [Adipex-P] 37.5 mg PO DAILY 01/24/21 01/24/21 Allergies Allergy/AdvReac Type Severity Reaction Status Date / Time No Known Allergies Allergy Verified 01/24/21 22:57 Review of Systems ROS Statement: Those systems with pertinent positive or pertinent negative responses have been documented in the HPI. ROS Other: All systems not noted in ROS Statement are negative. Constitutional: Denies: fever, chills Respiratory: Denies: cough, dyspnea Cardiovascular: Denies: chest pain Gastrointestinal: Reports: abdominal pain, nausea. Denies: vomiting, diarrhea, constipation, melena, hematochezia Genitourinary: Denies: dysuria, hematuria Musculoskeletal: Denies: back pain Skin: Denies: rash Neurological: Denies: headache, weakness, numbness Past Medical History Past Medical History: Hyperlipidemia Additional Past Medical History / Comment(s): gestational diabetes History of Any Multi-Drug Resistant Organisms: None Reported Past Surgical History: No Surgical Hx Reported Additional Past Surgical History / Comment(s): left eye, cyst removed from wrist. Her tubes as a child Additional Past Anesthesia/Blood Transfusion Reaction / Comment(s): NEVER HAD BLOOD TRANSFUSION Past Psychological History: No Psychological Hx Reported Smoking Status: Never smoker Past Alcohol Use History: None Reported Past Drug Use History: None Reported - Past Family History Mother Family Medical History: No Reported History General Exam General appearance: alert, in no apparent distress Head exam: Present: atraumatic, normocephalic Eye exam: Present: normal appearance. Absent: scleral icterus, conjunctival injection Respiratory exam: Present: normal lung sounds bilaterally. Absent: respiratory distress, wheezes, rales, rhonchi, stridor Cardiovascular Exam: Present: regular rate, normal rhythm, normal heart sounds. Absent: systolic murmur, diastolic murmur, rubs, gallop GI/Abdominal exam: Present: soft. Absent: distended, tenderness, guarding, rebound, rigid, mass, pulsatile mass, hernia Extremities exam: Present: normal inspection, normal capillary refill. Absent: pedal edema, calf tenderness Back exam: Present: normal inspection. Absent: CVA tenderness (R), CVA tenderness (L) Neurological exam: Present: alert Skin exam: Present: warm, dry, intact, normal color. Absent: rash Course Vital Signs 01/24/21 01/24/21 22:16 23:45 Temperature 97.8 F Pulse Rate 79 Respiratory 19 20 Rate Blood Pressure 107/72 107/75 O2 Sat by Pulse 98 96 Oximetry - Reevaluation(s) Reevaluation #1: 01/25/21 00:29 Please note that patient's is at bedside and appears very angry over episode of care that occurred last time patient was in, not able to articulate any complaint about this episode, yet remains very angry. Medical Decision Making - Medical Decision Making Patient is 30-year-old woman with right upper quadrant pain that she states is identical to previous episodes of biliary colic. She has had resolution of symptoms with medications. Discussed admission versus discharge patient requests to go home and follow with Dr. Mckinley and at this point this seems stable for that. - Lab Data Result diagrams: 01/24/21 22:41 01/24/21 22:41 Lab Results 01/24/21 01/24/21 01/24/21 Range/Units 22:41 22:41 22:41 WBC 13.6 H (3.8-10.6) k/uL RBC 4.65 (3.80-5.40) m/uL Hgb 13.3 (11.4-16.0) gm/dL Hct 39.9 (34.0-46.0) % MCV 85.8 (80.0-100.0) fL MCH 28.7 (25.0-35.0) pg MCHC 33.4 (31.0-37.0) g/dL RDW 12.6 (11.5-15.5) % Plt Count 317 (150-450) k/uL MPV 7.7 Neutrophils % 71 % Lymphocytes % 23 % Monocytes % 4 % Eosinophils % 1 % Basophils % 0 % Neutrophils # 9.6 H (1.3-7.7) k/uL Lymphocytes # 3.1 (1.0-4.8) k/uL Monocytes # 0.5 (0-1.0) k/uL Eosinophils # 0.2 (0-0.7) k/uL Basophils # 0.0 (0-0.2) k/uL Sodium (137-145) mmol/L Potassium (3.5-5.1) mmol/L Chloride (98-107) mmol/L Carbon Dioxide (22-30) mmol/L Anion Gap mmol/L BUN (7-17) mg/dL Creatinine (0.52-1.04) mg/dL Est GFR (CKD-EPI)AfAm (>60 ml/min/1.73 sqM) Est GFR (CKD-EPI)NonAf (>60 ml/min/1.73 sqM) Glucose (74-99) mg/dL Calcium (8.4-10.2) mg/dL Total Bilirubin (0.2-1.3) mg/dL AST (14-36) U/L ALT (4-34) U/L Alkaline Phosphatase (38-126) U/L Total Protein (6.3-8.2) g/dL Albumin (3.5-5.0) g/dL Amylase (30-110) U/L Lipase (23-300) U/L Urine Color Yellow Urine Appearance Cloudy H (Clear) Urine pH 5.5 (5.0-8.0) Ur Specific [place] 1.042 H (1.001-1.035) Urine Protein Trace H (Negative) Urine Glucose (UA) Negative (Negative) Urine Ketones Trace H (Negative) Urine Blood Negative (Negative) Urine Nitrite Negative (Negative) Urine Bilirubin Negative (Negative) Urine Urobilinogen 3.0 (<2.0) mg/dL Ur Leukocyte Esterase Trace H (Negative) Urine RBC 1 (0-5) /hpf Urine WBC 6 H (0-5) /hpf Ur Squamous Epith Cells 10 H (0-4) /hpf Amorphous Sediment Rare H (None) /hpf Hyaline Casts 1 (0-2) /lpf Urine Mucus Many H (None) /hpf Urine HCG, Qual Not Detected (Not Detectd) 01/24/21 Range/Units 22:41 WBC (3.8-10.6) k/uL RBC (3.80-5.40) m/uL Hgb (11.4-16.0) gm/dL Hct (34.0-46.0) % MCV (80.0-100.0) fL MCH (25.0-35.0) pg MCHC (31.0-37.0) g/dL RDW (11.5-15.5) % Plt Count (150-450) k/uL MPV Neutrophils % % Lymphocytes % % Monocytes % % Eosinophils % % Basophils % % Neutrophils # (1.3-7.7) k/uL Lymphocytes # (1.0-4.8) k/uL Monocytes # (0-1.0) k/uL Eosinophils # (0-0.7) k/uL Basophils # (0-0.2) k/uL Sodium 136 L (137-145) mmol/L Potassium 4.6 (3.5-5.1) mmol/L Chloride 104 (98-107) mmol/L Carbon Dioxide 23 (22-30) mmol/L Anion Gap 9 mmol/L BUN 16 (7-17) mg/dL Creatinine 0.59 (0.52-1.04) mg/dL Est GFR (CKD-EPI)AfAm >90 (>60 ml/min/1.73 sqM) Est GFR (CKD-EPI)NonAf >90 (>60 ml/min/1.73 sqM) Glucose 119 H (74-99) mg/dL Calcium 9.5 (8.4-10.2) mg/dL Total Bilirubin 0.2 (0.2-1.3) mg/dL AST 39 H (14-36) U/L ALT 18 (4-34) U/L Alkaline Phosphatase 93 (38-126) U/L Total Protein 7.2 (6.3-8.2) g/dL Albumin 4.3 (3.5-5.0) g/dL Amylase 60 (30-110) U/L Lipase 152 (23-300) U/L Urine Color Urine Appearance (Clear) Urine pH (5.0-8.0) Ur Specific [place] (1.001-1.035) Urine Protein (Negative) Urine Glucose (UA) (Negative) Urine Ketones (Negative) Urine Blood (Negative) Urine Nitrite (Negative) Urine Bilirubin (Negative) Urine Urobilinogen (<2.0) mg/dL Ur Leukocyte Esterase (Negative) Urine RBC (0-5) /hpf Urine WBC (0-5) /hpf Ur Squamous Epith Cells (0-4) /hpf Amorphous Sediment (None) /hpf Hyaline Casts (0-2) /lpf Urine Mucus (None) /hpf Urine HCG, Qual (Not Detectd) Disposition Clinical Impression: Abdominal pain, Biliary colic Disposition: HOME SELF-CARE Condition: Good Instructions (If sedation given, give patient instructions): Abdominal Pain (ED) Is patient prescribed a controlled substance at d/c from ED?: No Referrals: Chucho Kinney Jr, DO [Primary Care Provider] - 1-2 days
[2021-01-24 22:58] LABS: Basophils % (A) 0 %; Eosinophils # (A) 0.2 k/uL (0-0.7); Eosinophils % (A) 1 %; HCT 39.9 % (34.0-46.0); HGB 13.3 gm/dL (11.4-16.0); Lymphocytes # (A) 3.1 k/uL (1.0-4.8); Lymphocytes % (A) 23 %; MCH 28.7 pg (25.0-35.0); MCHC 33.4 g/dL (31.0-37.0); MCV 85.8 fL (80.0-100.0); Mean Platelet Volume 7.7; Monocytes # (A) 0.5 k/uL (0-1.0); Monocytes % (A) 4 %; Neutrophils # (A) 9.6 k/uL (1.3-7.7); Neutrophils % (A) 71 %; Platelet Count 317 k/uL (150-450); RBC 4.65 m/uL (3.80-5.40); RDW 12.6 % (11.5-15.5); WBC 13.6 k/uL (3.8-10.6)
[2021-01-24 23:07] LABS: ALT 18 U/L (4-34); AST 39 U/L (14-36); African American GFR (CKD) >90 (>60 ml/min/1.73 sqM); Albumin 4.3 g/dL (3.5-5.0); Alkaline Phosphatase 93 U/L (38-126); Amylase 60 U/L (30-110); Anion Gap 9 mmol/L; Blood Urea Nitrogen 16 mg/dL (7-17); Calcium 9.5 mg/dL (8.4-10.2); Carbon Dioxide 23 mmol/L (22-30); Chloride 104 mmol/L (98-107); Glucose 119 mg/dL (74-99); Lipase 152 U/L (23-300); Non-African American GFR(CKD) >90 (>60 ml/min/1.73 sqM); Potassium 4.6 mmol/L (3.5-5.1); Sodium 136 mmol/L (137-145); Total Bilirubin 0.2 mg/dL (0.2-1.3); Total Protein 7.2 g/dL (6.3-8.2)
[2021-01-24 23:46] VITALS: RESP 20
[2021-01-24 23:59] LABS: Amorphous Sediment,Urine Rare /hpf; Appearance,Urine Cloudy (Clear); Bilirubin,Urine Negative (Negative); Blood,Urine Negative (Negative); Color,Urine Yellow; Glucose,Urine (UA) Negative (Negative); Hyaline Casts,Urine 1 /lpf (0-2); Ketones,Urine Trace (Negative); Leukocyte Esterase,Urine Trace (Negative); Mucus,Urine Many /hpf; Nitrite,Urine Negative (Negative); PH, Urine 5.5 (5.0-8.0); Protein,Urine Trace (Negative); RBC,Urine 1 /hpf (0-5); Specific Gravity,Urine 1.042 (1.001-1.035); Squamous Epithelial Cell,Urine 10 /hpf (0-4); WBC,Urine 6 /hpf (0-5)
[2021-01-25 00:42] VITALS: BP 107/64; PULSE 73
== END 2021-01-25 00:35 | disposition home or self-care (01) ==
LOC: EC 21:49
DX: K80.50 Calculus of bile duct without cholangitis or cholecystitis without obstruction (principal); E78.5 Hyperlipidemia, unspecified
CPT/HCPCS: 99284; 96374; 96375; 96376; 36415; 80053; 82150; 83690; 85025; 81001; 81025; J2405; J1170

== ENCOUNTER 2021-02-10 09:38 | Day surgery (SDC) | payer BC, OTHER ==
[2021-02-08 17:16] VITALS: BMI 27.3
[~2021-02-10 09:38] MED LIST: DEXAMETHASONE SOD PHOSPHATE 4 MG/ML 1 ML VIAL IV ONE; HEPARIN SODIUM,PORCINE/PF 5,000 UNIT/0.5 ML SYRINGE SQ PRN; LACTATED RINGERS 1,000 ML IV SCH; LIDOCAINE 1% (10MG/ML) FOR IV START INTRADERMA PRN; ONDANSETRON 4 MG/2 ML VIAL IVP ONE; SCOPOLAMINE 1.5MG/72HR PATCH TRANSDERM ONE
[2021-02-10] MEDS ORDERED: ACETAMINOPHEN TAB 500 MG TAB PO STA (09:44)
[2021-02-10] MEDS ORDERED: GABAPENTIN 300 MG CAP PO STA (09:44)
[2021-02-10] MEDS ORDERED: MELOXICAM 7.5 MG TAB PO SCH (09:45)
--- NOTE | 2021-02-10 09:46 | P.GSHP ---
History of Present Illness H&P Date: 02/10/21 CHIEF COMPLAINT: Cholecystitis HISTORY OF PRESENT ILLNESS: The patient is a 30-year-old female who presents with history of epigastric including right upper quadrant abdominal pain. She underwent diagnostic studies for her gallbladder. Separately her clinical picture was consistent with cholecystitis. Now she presents for surgical intervention. PAST MEDICAL HISTORY: Please see list PAST SURGICAL HISTORY: Please see list MEDICATIONS: Please see list ALLERGIES: Please see list SOCIAL HISTORY: Please see list FAMILY HISTORY: Please see list REVIEW OF ORGAN SYSTEMS: CONSTITUTIONAL: No reports of fevers or chills. HEENT: Denies any troubles with the vision or hearing. ENDOCRINE: No reports of hypothyroidism. No diabetes. RESPIRATORY: No recent pneumonias. CARDIOVASCULAR: Denies chest pain or palpitations GI: No blood in stools or constipation. MUSCULOSKELETAL: Has occasional joint pain including back pain. NEURO: No seizure disorders or headaches. No recent stroke. PSYCH: No depression or suicidal ideation. GENITOURINARY: No active blood in urine. No urinary hesitancy. HEMATOLOGIC: No personal or family history of DVTs or pulmonary emboli. SKIN: No skin cancer. PHYSICAL EXAM: VITAL SIGNS: Afebrile vital signs stable GENERAL: Well-developed pleasant in no acute distress. HEENT: No scleral icterus. Extraocular movements grossly intact. Moist buccal mucosa. NECK: Supple without lymphadenopathy. CHEST: Unlabored respirations. Equal bilateral excursions. CARDIOVASCULAR: Regular rate regular rhythm rhythm. Distal 2+ pulses. ABDOMEN: Soft, nondistended. Tender along the epigastrium and right upper quadrant. MUSCULOSKELETAL: No clubbing, cyanosis, or edema. NEURO: Cranial nerves II to XII within normal limits. No focal or lateralizing signs. PSYCH: Alert and oriented to person, place and time. SKIN: Well-perfused good skin turgor. ASSESSMENT: 1. Epigastric and right upper quadrant abdominal pain 2. Chronic cholecystitis 3. Symptomatic gallstones. PLAN: 1. Will need a robotic cholecystectomy possible open. Benefits and risks were described. 2. Heparin for DVT prophylaxis 5000 units. 3. Antibiotic prophylaxis. Past Medical History Past Medical History: Hyperlipidemia Additional Past Medical History / Comment(s): gestational diabetes. GALLBLADDER DISORDER History of Any Multi-Drug Resistant Organisms: None Reported Past Surgical History: No Surgical Hx Reported Additional Past Surgical History / Comment(s): left eye, cyst removed from wrist. Her tubes IN EARS as a child, WISDOM TEETH REMOVED Past Anesthesia/Blood Transfusion Reactions: Postoperative Nausea & Vomiting (PONV) Additional Past Anesthesia/Blood Transfusion Reaction / Comment(s): NEVER HAD BLOOD TRANSFUSION Smoking Status: Never smoker - Past Family History Mother Family Medical History: No Reported History Medications and Allergies Home Medications Medication Instructions Recorded Confirmed Type Atorvastatin [Lipitor] 20 mg PO DAILY 12/29/20 02/08/21 History Etonogestrel/Ethinyl Estradiol 1 vag ring VAGINAL Q28D 12/29/20 02/08/21 History [Nuvaring Vaginal Ring] Phentermine HCl [Adipex-P] 37.5 mg PO DAILY 01/24/21 02/08/21 History Allergies Allergy/AdvReac Type Severity Reaction Status Date / Time No Known Allergies Allergy Verified 02/08/21 17:07
[2021-02-10] MEDS: INDOCYANINE GREEN 25 MG VIAL IV STA ×3 (10:09→12:05)
[2021-02-10] MEDS ORDERED: BUPIVACAIN-EPI 0.25%-1:200,000 30 ML VIAL SQ ONE ×3 (10:09→12:25)
[2021-02-10] MEDS ORDERED: ROCURONIUM 10 MG/ML (5 ML VIAL) IV ONE (12:00)
[2021-02-10] MEDS ORDERED: GLYCOPYRROLATE 0.2 MG/ML 2 ML VIAL ONE (12:00)
[2021-02-10] MEDS ORDERED: SUCCINYLCHOLINE CHLORIDE 100 MG/5 ML SYR IV ONE (12:00)
[2021-02-10] MEDS ORDERED: LIDOCAINE 1% INJ 10MG/ML (20 ML MDV) ONE (12:00)
[2021-02-10] MEDS ORDERED: INDOCYANINE GREEN 25 MG VIAL IV ONE (12:00)
[2021-02-10] MEDS ORDERED: NEOSTIGMINE 1 MG/ML 10 ML VIAL ONE (12:00)
[2021-02-10] MEDS ORDERED: fentaNYL (PF) 50 MCG/ML 2 ML AMP ONE (12:00)
[2021-02-10] MEDS ORDERED: KETAMINE 10 MG/ML 20 ML VIAL ONE (12:00)
[2021-02-10] MEDS ORDERED: KETOROLAC 15 MG/ML 1 ML VIAL ONE ×2 (12:00→13:39)
[2021-02-10] MEDS ORDERED: PROPOFOL 10 MG/ML 20 ML VIAL IV ONE (12:00)
[2021-02-10] MEDS ORDERED: MIDAZOLAM 2 MG/2 ML VIAL ONE (12:00)
[2021-02-10] MEDS ORDERED: LACTATED RINGERS 1,000 ML IV ONE (12:54)
[2021-02-10] MEDS ORDERED: SIMETHICONE 80 MG CHEWABLE PO PRN (13:22)
[2021-02-10] MEDS ORDERED: oxyCODONE-APAP 5-325MG 1 EACH TAB PO PRN (13:23)
[2021-02-10 13:26] VITALS: TEMP 96.8
--- NOTE | 2021-02-10 13:29 | P.OP ---
Date of Procedure: 02/10/21 Description of Procedure: SURGEON: USHA MCKINLEY MD PREOPERATIVE DIAGNOSES: 1. Symptomatic gallstone 2. Right upper quadrant abdominal pain 3. Hyperlipidemia POSTOPERATIVE DIAGNOSES: 1. Symptomatic gallstone 2. Right upper quadrant abdominal pain 3. Chronic cholecystitis 4. Peritoneal adhesions, right upper quadrant 5. Hyperlipidemia OPERATION: 1. Robotic-assisted da Dolly Xi laparoscopic lysis of adhesions 2. Robotic-assisted da Dolly Xi laparoscopic cholecystectomy, multiport with FIREFLY ESTIMATED BLOOD LOSS: 10 mL. SPECIMENS REMOVED: Gallbladder. COMPLICATIONS: None. OPERATIVE FINDINGS: 1. Moderate scarring over entire gallbladder with peritoneal adhesions, pericholecystic with features of chronic cholecystitis INDICATIONS: The patient is a 18-year-old female who presents with symptomatic gallstones. Robotic assisted laparoscopic approach was described. Benefits and risks of the procedure including but not limited to bleeding, infection, injury to the biliary tree was described. Informed consent was obtained. DESCRIPTION OF PROCEDURE: Patient was brought to the operating room, placed in supine position. After general induction, the abdomen had been prepped and draped in standard sterile fashion. The robotic da Dolly XI system was primed. After a timeout protocol was performed, the patient had been prepped and draped in standard sterile fashion. The patient was injected with indocyanine green. A 5 mm 0 degrees laparoscopic trocar entry was performed along the left upper quadrant. The abdomen insufflated to 15 mmHg pressure which was tolerated well. Diagnostic laparoscopy demonstrated no injury to bowel viscera or mesentery. The liver surface was unremarkable. Next, two 8 mm robotic ports were placed along the right upper abdomen. The camera 8-mm port was maintained along the epigastrium. Another 8 mm port was placed along the left upper abdominal wall after exchanging the 5 mm port. Please note that the ports were placed at least 10 to 15 cm away from the target anatomy of the gallbladder. The robot was docked along the left lateral abdomen. The patient was repositioned in reverse Trendelenburg position. Using a grasper for arm 3, a grasper for arm 4, including hook cautery for arm 1, the robotic system was docked and primed as described. Instruments were interchanged by the assistant county engineer including hook cautery, Bovie cautery and clip appliers. I had sat at the console. The gallbladder was scarred with peritoneal adhesions. Lysis of adhesions was performed to free the gallbladder from the surrounding tissues. Next attention was brought to the infundibulum and cystic structures. The infundibulum and cystic duct were dissected free from surrounding tissues. The cystic duct was isolated. FIREFLY was used to identify the cystic artery and cystic structures. A critical view of safety was obtained. Large PLASTIC clips were used throughout the entire case. Using a clip business director, 2 clips were placed at the junction of the infundibulum and cystic duct. The cystic duct was divided between clips. Next, the cystic artery was similarly clipped and cauterized. Electro-Bovie cautery was used to remove the gallbladder from the hepatic fossa. Hemostasis was checked and found to be adequate. The robot was undocked. I re-scrubbed into the case. Using a 10 mm Endo Catch bag via the left upper quadrant incision, the specimen was removed from the abdominal cavity. All pneumoperitoneum instruments were evacuated from the abdominal cavity. The incisions were reapproximated using 4-0 Monocryl in an interrupted subcuticular fashion. Fascial defects were less than 8 mm in size. Please note along the trocar sites, local anesthetic was placed as a field block prior to insertion of all instruments. Liquid glue was applied to the skin. At the end of the procedure needle, sponge, and instrument count had been verified correct by the surgical dental assistant. The patient was transferred to postanesthesia care unit in stable condition. Intraoperative films were shared with the patient's family. Plan - Discharge Summary Discharge Rx Participant: No New Discharge Prescriptions: New Ibuprofen [Motrin] 600 mg PO Q8HR PRN #30 tab PRN Reason: Pain Acetaminophen Tab [Tylenol Tab] 1,000 mg PO Q6HR PRN #30 tablet PRN Reason: Pain Simethicone [Gas-X] 125 mg PO AC-TID PRN #20 capsule PRN Reason: Pain Continue Etonogestrel/Ethinyl Estradiol [Nuvaring Vaginal Ring] 1 vag ring VAGINAL Q28D Atorvastatin [Lipitor] 20 mg PO DAILY Phentermine HCl [Adipex-P] 37.5 mg PO DAILY Discharge Medication List Atorvastatin [Lipitor] 20 mg PO DAILY 12/29/20 [History] Etonogestrel/Ethinyl Estradiol [Nuvaring Vaginal Ring] 1 vag ring VAGINAL Q28D 12/29/20 [History] Phentermine HCl [Adipex-P] 37.5 mg PO DAILY 01/24/21 [History] Acetaminophen Tab [Tylenol Tab] 1,000 mg PO Q6HR PRN #30 tablet 02/10/21 [Rx] Ibuprofen [Motrin] 600 mg PO Q8HR PRN #30 tab 02/10/21 [Rx] Simethicone [Gas-X] 125 mg PO AC-TID PRN #20 capsule 02/10/21 [Rx] Follow up Appointment(s)/Referral(s): Usha Mckinley MD [STAFF PHYSICIAN] - 02/15/21 Patient Instructions/Handouts: *[facility] - Scopalamine Patch Instructions Activity/Diet/Wound Care/Special Instructions: Recommend low-fat diet for the next 2 days. No lifting over 10 pounds in 2 weeks until February 24. July shower. No bath tub soaks for two weeks until February 24 Diet as tolerated. Use Tylenol, simethicone and ibuprofen or Aleve scheduled for the next 24-48 hours for best pain relief. Use ice along incisions for today to prevent swelling. Discharge Disposition: HOME SELF-CARE
[2021-02-10] MEDS: HYDROmorphone 0.5 MG/0.5 ML SYRINGE IVP PRN ×3 (13:32→13:50)
[2021-02-10] MEDS ORDERED: KETOROLAC 15 MG/ML 1 ML VIAL IVP ONE (13:41)
[2021-02-10 14:23] VITALS: RESP 18
[2021-02-10 15:19] VITALS: BP 127/67
[2021-02-10 16:06] VITALS: PULSE 82
[2021-02-11] MEDS ORDERED: NON FORMULARY DRUG (Phentermine Hcl [Adipex-P] 37.5 MG Tablet) PO SCH (09:00)
[2021-02-11] MEDS ORDERED: ATORVASTATIN 20 MG TAB PO SCH (09:00)
== END 2021-02-10 16:16 | disposition home or self-care (01) ==
LOC: OR 09:38
PROVIDERS: ATTEND Surgery Plastic and Reconstructive Surgery
DX: K80.10 Calculus of gallbladder with chronic cholecystitis without obstruction (principal); K66.0 Peritoneal adhesions (postprocedural) (postinfection); E78.5 Hyperlipidemia, unspecified; Z86.32 Personal history of gestational diabetes; Z98.890 Other specified postprocedural states; Z79.3 Long term (current) use of hormonal contraceptives; Z79.899 Other long term (current) drug therapy
CPT/HCPCS: 47563; S2900; 81025; 88304

== ENCOUNTER → 2022-01-31 | Outpatient (CLI) | payer BC, OTHER ==
--- NOTE | 2022-01-31 15:37 | MM ---
Reason for Exam: Clinical finding. Baseline mammogram. Indicated Problems: Pain of both sides (Global) for 4 Year(s) : BOTH BREAST. Patient History: Menarche at age 10. First Full-Term at age 22. Patient tested for BRCA1 outcome was positive. Maternal grandmother had breast cancer at or over age 50. Maternal aunt had breast cancer. Last menstrual period: 12/31/2021 Prior Study Comparison: Patient's first Mammogram. Tissue Density: The breast tissue is heterogeneously dense. This may lower the sensitivity of mammography. Findings: Analyzed By CAD. On the left mediolateral oblique feel are scattered patchy areas of increased density with irregular margins. A mediolateral view however has a more normal appearance. Findings are likely summation density. Short-term follow-up is recommended. No suspicious groups of microcalcifications, spiculated or lobular masses, architectural distortion or other secondary signs of malignancy are mammographically apparent. Overall Assessment: Probably benign, BI-RAD 3 Management: Diagnostic Mammogram of the left breast in 6 months. A negative mammogram report should not preclude additional follow up of suspicious palpable abnormalities. Patient should continue monthly self breast exam. A clinical breast exam by your physician is recommended on an annual basis and results should be correlated with mammographic findings. Electronically signed and approved by: Mario Lutz D.O. Radiologis
== END | disposition home or self-care (01) ==
LOC: RADMAMWWP 14:11
PROVIDERS: ATTEND Family Medicine
DX: N64.4 Mastodynia (principal); Z80.3 Family history of malignant neoplasm of breast
CPT/HCPCS: 77062; 77066

== ENCOUNTER → 2023-02-26 | Outpatient (CLI) | payer BC, OTHER ==
--- NOTE | 2023-02-26 08:07 | MM ---
Reason for Exam: Follow-up at short interval from prior study. Last screening mammogram was performed 12 month(s) ago. Patient History: Menarche at age 10. First Full-Term at age 22. Patient tested for BRCA1 outcome was positive. Maternal grandmother had breast cancer at or over age 50. Maternal aunt had breast cancer. Last menstrual period: 01/25/2023 Prior Study Comparison: 01/31/2022 Bilateral MG 3D diag mammo w/cad [facility]. Tissue Density: Left: The breast tissue is heterogeneously dense. This may lower the sensitivity of mammography. Findings: Analyzed By CAD. No new suspicious masses, calcifications or distortions. Overall Assessment: Negative, BI-RAD 1 Management: Screening Mammogram of both breasts in 1 year. Results were given to the patient verbally at the time of exam. Patient should continue monthly self-breast exams. A clinical breast exam by your physician is recommended on an annual basis. This exam should not preclude additional follow-up of suspicious palpable abnormalities. Note on Iesha scores and lifetime risk: 1. A Iesha score greater than 3% is considered moderate risk. If this is the case, consider specialist referral to assess eligibility for a risk reducing agent. 2. If overall lifetime risk for the development of breast cancer is 20% or higher, the patient may qualify for future screening with alternating mammogram and breast MRI. Electronically signed and approved by: Caio Finn DO
== END | disposition home or self-care (01) ==
LOC: RADMAMWWP 07:44
PROVIDERS: ATTEND Obstetrics & Gynecology Obstetrics
DX: R92.332 Mammographic heterogeneous density, left breast (principal); Z80.3 Family history of malignant neoplasm of breast
CPT/HCPCS: 77061; 77065

== ENCOUNTER → 2023-04-30 | Outpatient (CLI) | payer BC ==
[2023-04-30 12:00] LABS: Basophils # (A) 0.02 X 10*3/uL (0.00-0.10); Basophils % (A) 0.4 %; Eosinophils # (A) 0.08 X 10*3/uL (0.04-0.35); Eosinophils % (A) 1.4 %; HCT 38.6 % (37.2-46.3); HGB 12.3 g/dL (12.0-15.0); Lymphocytes # (A) 2.47 X 10*3/uL (0.90-5.00); Lymphocytes % (A) 43.3 %; MCH 25.7 pg (27.0-32.0); MCHC 31.9 g/dL (32.0-37.0); MCV 80.6 FL (80.0-97.0); Mean Platelet Volume 11.1 FL (9.5-12.2); Monocytes # (A) 0.35 X 10*3/uL (0.20-1.00); Monocytes % (A) 6.1 %; NRBC Per 100 WBC 0 X 10*3/uL (0.00-0.01); Neutrophils # (A) 2.77 X 10*3/uL (1.80-7.70); Neutrophils % (A) 48.6 %; Platelet Count 298 X 10*3/uL (140-440); RBC 4.79 X 10*6/uL (4.10-5.20); RDW 14.5 % (11.5-14.5)
[2023-04-30 12:09] LABS: Blood Urea Nitrogen 10.2 mg/dL (9.0-27.0); Carbon Dioxide 23.5 mmol/L (21.6-31.8); Chloride 105 mmol/L (96-109); Glucose 88 mg/dL (70-110); Potassium 4.4 mmol/L (3.5-5.5); Sodium 138 mmol/L (135-145)
== END | disposition home or self-care (01) ==
LOC: LABWHC1 08:29
PROVIDERS: ATTEND Obstetrics & Gynecology Obstetrics
DX: Z01.812 Encounter for preprocedural laboratory examination (principal); N92.0 Excessive and frequent menstruation with regular cycle
CPT/HCPCS: 36415; 80051; 82565; 82947; 84520; 85025; 86850; 86900; 86901; 87086

== ENCOUNTER 2023-05-08 05:42 | Day surgery (SDC) | payer BC, OTHER ==
[2023-05-01 10:17] VITALS: BMI 30.7
[2023-05-08] MEDS: LACTATED RINGERS 1,000 ML IV ONE ×2 (06:27→08:30)
[2023-05-08] MEDS: ONDANSETRON 4 MG/2 ML VIAL IVP ONE (06:28)
[2023-05-08] MEDS: LIDOCAINE 1% (10MG/ML) FOR IV START INTRADERMA PRN (06:28)
[2023-05-08] MEDS: SCOPOLAMINE 1 MG/72 HR PATCH TRANSDERM ONE (06:28)
[2023-05-08] MEDS: DEXAMETHASONE SOD PHOSPHATE 4 MG/ML 1 ML VIAL IV ONE (06:28)
[2023-05-08 06:33] LABS: Glucose,Whole Blood 91 mg/dL (70-110)
[2023-05-08] MEDS: MIDAZOLAM 2 MG/2 ML VIAL IVP ONE (06:41)
[2023-05-08] MEDS ORDERED: PROPOFOL 10 MG/ML 20 ML VIAL IV ONE (07:24)
[2023-05-08] MEDS ORDERED: ROCURONIUM 10 MG/ML (5 ML VIAL) IV ONE (07:24)
[2023-05-08] MEDS ORDERED: LIDOCAINE 1% INJ 10MG/ML (20 ML MDV) ONE (07:24)
[2023-05-08] MEDS ORDERED: ACETAMINOPHEN IV (For NPO) 1,000 MG/100 ML VIAL ONE (07:24)
[2023-05-08] MEDS ORDERED: fentaNYL (PF) 50 MCG/ML 2 ML AMP ONE (07:24)
[2023-05-08] MEDS ORDERED: MIDAZOLAM 2 MG/2 ML VIAL ONE (07:24)
[2023-05-08] MEDS ORDERED: HYDROmorphone (PF) 1 MG/ML ONE (07:24)
[2023-05-08] MEDS ORDERED: NEOSTIGMINE 1 MG/ML 10 ML VIAL ONE (07:24)
[2023-05-08] MEDS ORDERED: GLYCOPYRROLATE 0.2 MG/ML 2 ML VIAL ONE (07:24)
[2023-05-08] MEDS ORDERED: SUCCINYLCHOLINE CHLORIDE 200 MG/10 ML VIAL IV ONE (07:24)
--- NOTE | 2023-05-08 07:35 | P.HPOB ---
History of Present Illness H&P Date: 05/08/23 Chief Complaint: Menorrhagia, failed medical treatment This is a 32-year-old female that presents with complaints of heavy menstrual bleeding. Patient states menstrual cycles are regular but heavy with clots lasting 7 to 10 days. Patient states she will go through a tampon and a pad every hour for multiple days of her menstrual cycles. She has no midcycle spotting. Patient has tried medical management with no recurring for which she has had no change of her menstrual bleeding. She complains of severe dysmenorrhea with minimal relief with NSAIDs. 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 Ultrasound completed revealing a uterus and size of 7 x 4 x 3 heterogeneous suspicious for adenomyosis, ovaries appeared normal with follicles. 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 CHOLESTROL UNDER CONTROL. HEAVY IRREGULAR PERIODS History of Any Multi-Drug Resistant Organisms: None Reported Past Surgical History: No Surgical Hx Reported, Cholecystectomy Additional Past Surgical History / Comment(s): left eye, cyst removed from wrist. EARS tubes as a child Past Anesthesia/Blood Transfusion Reactions: Postoperative Nausea & Vomiting (PONV) Additional Past Anesthesia/Blood Transfusion Reaction / Comment(s): NEVER HAD BLOOD TRANSFUSION Smoking Status: Never smoker - Past Family History Mother Family Medical History: No Reported History Medications and Allergies Home Medications Medication Instructions Recorded Confirmed Type Etonogestrel/Ethinyl Estradiol 1 vag ring VAGINAL Q28D 12/29/20 05/01/23 History [Nuvaring Vaginal Ring] Allergies Allergy/AdvReac Type Severity Reaction Status Date / Time No Known Allergies Allergy Verified 05/01/23 10:04 Exam Osteopathic Statement: *. No significant issues noted on an osteopathic structural exam other than those noted in the History and Physical/Consult. Vital Signs Temp Pulse Resp BP Pulse Ox 05/08/23 06:10 98 F 85 18 123/64 99 Intake and Output 05/07/23 05/08/23 05/08/23 22:59 06:59 14:59 Intake Total 400 Balance 400 Intake: IV 400 Other: Weight 75.9 kg Targeted physical exam is performed this date General is well-nourished well- developed non female in no acute distress, breathing is noted to be nonlabored, heart has a regular rate and the, abdomen is soft and nontender. On genitourinary exam the vaginal mucosa is noted to be pink and well-rugated, the cervix is without lesion, the uterus is mobile and globular no adnexal masses are appreciated. Assessment and Plan (1) Menorrhagia Current Visit: Yes Status: Acute Code(s): N92.0 - EXCESSIVE AND FREQUENT MENSTRUATION WITH REGULAR CYCLE SNOMED Code(s): 307718630 (2) Dysmenorrhea Current Visit: Yes Status: Acute Code(s): N94.6 - DYSMENORRHEA, UNSPECIFIED SNOMED Code(s): 850401172 Plan: 32-year-old with known heavy menstrual bleeding/menorrhagia and dysmenorrhea. Patient has failed medical treatment and wishes definitive treatment. Patient is counseled on risks of surgery including but not limited to infection, bleeding, damage to bladder, bowel, ureteric injury. Patient states understanding and wishes to proceed. All questions are answered to patient's satisfaction and she is taken back to the operating suite for robotic assisted vaginal hysterectomy, bilateral salpingectomy, diagnostic cystoscopy.
[2023-05-08] MEDS: BUPIVACAINE (PF) 0.25% 30 ML VIAL SQ ONE ×2 (08:01→08:50)
[2023-05-08] MEDS ORDERED: SIMETHICONE 80 MG CHEWABLE PO PRN (09:08)
[2023-05-08] MEDS ORDERED: Acetaminophen-Codeine 300-30mg TAB PO PRN (09:08)
--- NOTE | 2023-05-08 09:18 | P.OP ---
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 Patient has tried medical options for her heavy menstrual bleeding which have been unsuccessful. Patient is noting increasing discomfort with her cycles and request definitive treatment. Patient states she bleeds through a super tampon and pad every hour for the first several days of her period, passing large clots. Operative Findings: Globular uterus with pelvic congestion appreciated normal ovaries bilaterally Description of Procedure: Patient was taken back to the operating suite where general anesthesia was obtained without difficulty by the anesthesia department. She was prepped and draped in the normal sterile fashion in the dorsolithotomy position. A Johansen catheter was placed under sterile technique. A weighted speculum was placed in the posterior vaginal vault the anterior lip of the cervix was visualized and grasped with a single-tooth tenaculum. The endocervical canal was then serially dilated and a [employer] uterine manipulator was advanced to the uterus as a means to manipulate the uterus throughout the procedure. The cervical clamp was placed snugly against the cervix and the balloon was insufflated with air. At this time attention was then turned to the patient's abdomen where approximately 2 fingerbreadths above the umbilicus a small skin incision is made. Through this incision the Veress needle was placed. Once the Veress needle was deemed to be in the proper position with a drop of CO2 pressure with the insufflation of CO2 gas CO2 insufflation was allowed to occur. Approximately 3 L of gas were used to obtain pneumoperitoneum. At this time I an 8 mm trocar and sleeve was placed through the skin incision and toward the pneumoperitoneum with the laparoscope in place. The above-noted findings were visualized. The additional port sites are now placed at 10 cm lateral and 3 cm inferior midline port these are 8 mm ports and placed under direct visualization. In the left upper quadrant a 12 mm skin incision is made and placed under direct visualization. The da Dolly is docked in the usual fashion. In the right operative arm the monopolar scissors was placed in the left operative arm the bipolar forceps is placed. Attention was then turned to the patient's left fallopian tube which was elevated and the mesosalpinx is coagulated and transected toward the utero-ovarian ligament. The utero-ovarian ligament was then coagulated distally and proximally and divided. This continued through the broad toward the round which was coagulated distally and proximally and divided. The bladder flap from the left was then created using sharp and blunt dissection. The standing branch of the uterine artery was visualized coagulated and transected. The bladder flap was noted to be quite vascular and any points of bleeding were made hemostatic with the monopolar cautery. Attention then turned to the patient's right fallopian tube which was elevated the mesosalpinx was coagulated and transected. The utero-ovarian ligament was visualized coagulated and transected. This continued through the broad toward the round which was coagulated distally and proximally and divided. The bladder flap from the right was created using sharp and blunt dissection. The ascending branch of the uterine artery was visualized from the right coagulated and transected. At this time the only remaining attachment was a vaginal attachment therefore colpotomy incision was made in a circumferential fashion. The uterus cervix bilateral fallopian tubes were then delivered through the vaginal opening. The pelvis was then copiously irrigated. The vaginal cuff was closed with 0 Vicryl in a [id number] fashion, approximately 4 sutures were used to obtain closure. At this time the vaginal cuff was inspected hemostasis was appreciated. All instruments were removed from the patient's abdomen. The da Dolly was undocked in the usual fashion. Attention was then turned to the patient's Johansen catheter which was removed without difficulty it was noted to be draining clear yellow urine. A cystoscopy was performed. Cystoscope was placed through the urethra into the bladder bladder bubble was appreciated, complete survey of the bladder mucosa revealed no defects. Both ureteral orifices were noted to be smelling clear yellow urine. The cystoscope was removed and the Johansen catheter was replaced. Attention was then turned to the patient's skin incisions, these were closed with 4-0 Vicryl in a subcuticular fashion. Steri-Strips and sterile dressings were applied. All counts were noted be correct x 2 at the end of the procedure. Patient tolerated procedure well and was taken the recovery room awake in stable condition.
[2023-05-08] MEDS: HYDROmorphone 0.5 MG/0.5 ML SYRINGE IVP PRN (09:52)
[2023-05-08] MEDS: IBUPROFEN IV 800 MG in SODIUM CHLORIDE 0.9% 250 ML IV ONE (11:23)
[2023-05-08 13:35] VITALS: RESP 16
[2023-05-08] MEDS: Acetaminophen-Codeine 300-30mg TAB PO PRN (14:03)
[2023-05-08] MEDS: IBUPROFEN 600 MG TAB PO PRN (17:26)
[2023-05-08] MEDS: SENNOSIDES-DOCUSATE SODIUM 1 EACH TAB PO SCH (22:24)
[2023-05-08] MEDS: droPERidol 5 MG/2 ML VIAL IVP ONE (22:28)
[2023-05-08] MEDS: ACETAMINOPHEN IV (For NPO) 1,000 MG in EMPTY BAG 1 BAG IVPB ONE (22:28)
[2023-05-09] MEDS: LACTATED RINGERS 1,000 ML IV SCH (07:50)
[2023-05-09 07:51] LABS: Basophils % (A) 0 %; Eosinophils # (A) 0.1 k/uL (0-0.7); Eosinophils % (A) 1 %; HCT 34.8 % (34.0-46.0); HGB 11.4 gm/dL (11.4-16.0); Lymphocytes # (A) 2.8 k/uL (1.0-4.8); Lymphocytes % (A) 27 %; MCH 26.4 pg (25.0-35.0); MCHC 32.7 g/dL (31.0-37.0); MCV 80.7 fL (80.0-100.0); Mean Platelet Volume 8.2; Monocytes # (A) 0.4 k/uL (0-1.0); Monocytes % (A) 4 %; Neutrophils # (A) 6.8 k/uL (1.3-7.7); Neutrophils % (A) 66 %; Platelet Count 278 k/uL (150-450); RBC 4.31 m/uL (3.80-5.40); RDW 15.1 % (11.5-15.5); WBC 10.3 k/uL (3.8-10.6)
[2023-05-09 08:06] VITALS: BP 116/76; PULSE 80; TEMP 98.6
--- NOTE | 2023-05-09 08:38 | P.DS ---
Providers Date of admission: 05/08/2023 Expected date of discharge: 05/09/23 Attending physician: Nilda Cross Primary care physician: Chucho Kinney - Discharge Diagnosis(es) (1) Menorrhagia Current Visit: Yes Status: Acute (2) Dysmenorrhea Current Visit: Yes Status: Acute (3) S/P hysterectomy Current Visit: Yes Status: Acute Hospital Course: 32-year-old female that presented to hospital yesterday for robotic assisted vaginal hysterectomy, bilateral salpingectomy, diagnostic cystoscopy. Patient has been struggling with heavy menstrual bleeding and noted failed medical treatment. Patient desired definitive treatment. For full details on this patient please see the dictated history and physical. Patient was admitted and taken back to the operating room where hysterectomy was completed without issue. For full details please see the dictated operative report. Patient's postoperative course has been uneventful. On this postoperative day #1 she is ambulating and voiding without difficulty. She is tolerating a regular diet without nausea or vomiting. She states her pain is well-controlled. She denies concerns and would like discharge home. Patient Condition at Discharge: Good Plan - Discharge Summary Discharge Rx Participant: Yes Follow up Appointment(s)/Referral(s): Nilda Cross DO [Doctor of Osteopathic Medicine] - 2 Weeks Patient Instructions/Handouts: *[facility] - (Anesthesia) Discharge Instructions Outpatient Surgery, *[facility] - Scopalamine Patch Instructions Activity/Diet/Wound Care/Special Instructions: No tub baths or intercourse until cleared by myself. Routine postoperative check in 2 weeks. Bleeding precautions are reviewed. [id number] ibuprofen 600 mg or 3 tablets every 6 hours as needed for pain. Should she have any concerns prior to her 2-week postop appointment she is urged to call the office and be seen prior. Discharge Disposition: HOME SELF-CARE
[2023-05-09] MEDS ORDERED: ACETAMINOPHEN TAB 325 MG TAB PO PRN (09:11)
== END 2023-05-09 09:10 | disposition home or self-care (01) ==
LOC: OR 05:42 → 4FBP 09:13 → OR 05-09 09:10
PROVIDERS: ATTEND Obstetrics & Gynecology Obstetrics
DX: N72 Inflammatory disease of cervix uteri (principal); E78.5 Hyperlipidemia, unspecified; N85.8 Other specified noninflammatory disorders of uterus; Z79.899 Other long term (current) drug therapy
CPT/HCPCS: 81025; 85025; 88307; 58552; J2250; J1100; J0690; J2405; J1741; J1170; J0665